=== PATIENT | male | born 1960 | race African-American/Black ===

== ENCOUNTER 2018-03-24 11:54 | Emergency (ER) | payer OTHER ==
[~2018-03-24] VITALS: Ht 177.8 cm; Wt 77.1 kg
--- NOTE | 2018-03-24 12:00 | NUR ---
AAOX3, [facility] FROM [facility] FOR SOB. SPEAKS IN FULL SENTENCES. SKIN IS WARM AND DRY. RR IS EVEN AND UNLABORED WITH NAD NOTED. AWAITING MD FOR EVAL.
[2018-03-24] MEDS ORDERED: IPRATROPIUM NEB FS 0.5 MG/2.5 ML AMPUL.NEB ONE (12:23)
[2018-03-24] MEDS ORDERED: ALBUTEROL FS 2.5 MG/3 ML VIAL.NEB ONE (12:23)
[2018-03-24] MEDS ORDERED: ALBUTEROL FS 2.5 MG/3 ML VIAL.NEB NEB ONE (12:30)
[2018-03-24] MEDS ORDERED: IPRATROPIUM NEB FS 0.5 MG/2.5 ML AMPUL.NEB NEB ONE (12:30)
[2018-03-24] MEDS ORDERED: DEXAMETHASONE SOD PHOSPHATE 10 MG/ML VIAL IM ONE (12:30)
--- NOTE | 2018-03-24 12:40 | NUR ---
Breathing treatment at
[2018-03-24] MEDS ORDERED: DEXAMETHASONE SOD PHOSPHATE 10 MG/ML VIAL ONE (13:05)
--- NOTE | 2018-03-24 13:30 | NUR ---
Patient is resting comfortably in bed with eyes closed. Easily aroused. VSS
--- NOTE | 2018-03-24 14:25 | NUR ---
Patient is resting comfortably in bed with eyes closed. Easily aroused. VSS
[2018-03-24] MEDS ORDERED: AZITHROMYCIN 250 MG TABLET PO ONE (14:30)
[2018-03-24] MEDS ORDERED: AZITHROMYCIN 250 MG TABLET ONE (15:07)
--- NOTE | 2018-03-24 15:16 | NUR ---
Patient discharged to home in stable condition. Written and verbal after care instructions given. Patient verbalizes understanding of instruction.
[2018-03-24 15:18] VITALS: BP 119/81
== END 2018-03-24 15:20 | disposition home or self-care (01) ==
LOC: ER 12:00
DX: J44.9 Chronic obstructive pulmonary disease, unspecified (principal); F17.210 Nicotine dependence, cigarettes, uncomplicated; R53.81 Other malaise; I10 Essential (primary) hypertension; Z93.3 Colostomy status
CPT/HCPCS: 71045; 94640; 96372; 99283; 99406; A4606; J1100; Z7610

== ENCOUNTER 2018-03-26 17:32 | Emergency (ER) | payer OTHER ==
[~2018-03-26] VITALS: Ht 175.3 cm; Wt 68.0 kg
[2018-03-26 17:36] VITALS: BP 149/92
[2018-03-26 18:14] LABS: BASOPHILS % (AUTO) 0.4 % (0.0-2.0); EOSINOPHILS % (AUTO) 2.3 % (0.0-6.0); HEMATOCRIT 32 % (39-51); HEMOGLOBIN 10.5 g/dL (13.5-17.5); LYMPHOCYTES # (AUTO) 1.4 /CMM (0.8-4.8); LYMPHOCYTES % (AUTO) 26.6 % (20.0-44.0); MEAN CORPUSCULAR HGB CONC 33 g/dl (31.0-36.0); MEAN CORPUSCULAR VOLUME 87 fL (80-96); MONOCYTES # (AUTO) 0.3 /CMM (0.1-1.30); MONOCYTES % (AUTO) 6.2 % (2.0-12.0); NEUTROPHILS # (AUTO) 3.6 /CMM (1.8-8.9); NEUTROPHILS % (AUTO) 64.5 % (43.0-81.0); PLATELET COUNT (AUTO) 438 /CMM (150-450); RDW COEFFICIENT OF VARIATION 13.6 (11.5-15.0); RED BLOOD CELL COUNT(AUTO) 3.63 MIL/uL (4.5-6.0); WHITE BLOOD COUNT (AUTO) 5.4 K/uL (4.3-11.0)
[2018-03-26 18:24] LABS: CALCIUM, SERUM 8.5 mg/dL (8.5-10.1); CARBON DIOXIDE 28 mmol/L (21-32); CHLORIDE 99 mmol/L (98-107); CREATININE 1.9 mg/dL (0.6-1.3); GLUCOSE 117 mg/dL (74-106); POTASSIUM 3.7 mmol/L (3.5-5.1); SODIUM SERUM 136 mmol/L (136-145); UREA NITROGEN, BLOOD 55 mg/dL (7-18)
[2018-03-26 18:29] LABS: ACETAMINOPHEN < 2 ug/ml (10-30); ALANINE AMINOTRANSFERASE 20 U/L (12-78); ALBUMIN 3.6 g/dL (3.4-5.0); ALCOHOL, BLOOD < 3 mg/dL (0-0); ALKALINE PHOSPHATASE 78 U/L (46-116); ASPARTATE AMINOTRANSFERASE 26 U/L (15-37); BILIRUBIN,DIRECT 0.1 mg/dL (0.0-0.2); BILIRUBIN,TOTAL 0.3 mg/dL (0.2-1.0); SALICYLATE 0.9 mg/dL (2.8-20.0); TOTAL PROTEIN, SERUM 7.5 g/dL (6.4-8.2)
== END 2018-03-26 19:23 | disposition home or self-care (01) ==
LOC: ER 17:35
DX: Z04.6 Encounter for general psychiatric examination, requested by authority (principal); F29 Unspecified psychosis not due to a substance or known physiological condition; N28.9 Disorder of kidney and ureter, unspecified; I10 Essential (primary) hypertension; F17.200 Nicotine dependence, unspecified, uncomplicated; G40.909 Epilepsy, unspecified, not intractable, without status epilepticus; Z93.3 Colostomy status
CPT/HCPCS: 36415; 71045; 80048; 80076; 80329; 85025; 99285; A4606; G0480 ×2; Z7610

== ENCOUNTER 2018-10-20 06:23 | Emergency (ER) | payer OTHER ==
[~2018-10-20] VITALS: Ht 175.3 cm; Wt 69.9 kg
--- NOTE | 2018-10-20 06:36 | NUR ---
[id number] FR STREETS C/O LEAKING COLOSTOMY BAG, BP 192/108 IN FIELD, OUT OF BP MEDICATION AMLODIPINE & CLONIDINE. PT AOX3 RR EVEN AND UNLABORED. NO SOB NOTED. NAD NOTED. NO NVD AT THIS TIME. PT GOWNED AND PLACED ON MONITOR WAITING FOR MED EVAL. COLOSTOMY BAG NOTED INTACT, NO SIGNS OF LEAKING.
[2018-10-20] MEDS ORDERED: AMLODIPINE BESYLATE 5 MG TABLET ONE (06:55)
[2018-10-20] MEDS ORDERED: CLONIDINE HCL 0.1 MG TABLET ONE (06:55)
[2018-10-20] MEDS: CLONIDINE HCL 0.1 MG TABLET PO ONE ×2 (06:56→06:59)
--- NOTE | 2018-10-20 06:59 | NUR ---
PT REFUSED CLONIDINE 0.1MG PO 1 TAB. RISK AND BENEFITS EXPLAINED X3. PT STRONGLY REFUSED, STATES " I DONT TAKE THAT, I DONT LIKE THE SIDE EFFECTS'
[2018-10-20] MEDS ORDERED: AMLODIPINE BESYLATE 5 MG TABLET PO ONE (07:00)
--- NOTE | 2018-10-20 07:04 | NUR ---
CALLED LAB FOR BLOOD DRAW.
--- NOTE | 2018-10-20 07:06 | NUR ---
REPORT GIVEN TO LAYLA PRADHAN
[2018-10-20 07:34] LABS: BASOPHILS # (AUTO) 0.1 /CMM (0.0-0.2); BASOPHILS % (AUTO) 1.3 % (0.0-2.0); EOSINOPHILS % (AUTO) 2.4 % (0.0-6.0); HEMATOCRIT 32 % (39-51); LYMPHOCYTES # (AUTO) 1.1 /CMM (0.8-4.8); LYMPHOCYTES % (AUTO) 19.6 % (20.0-44.0); MEAN CORPUSCULAR HGB CONC 32 g/dl (31.0-36.0); MEAN CORPUSCULAR VOLUME 92 fL (80-96); MONOCYTES # (AUTO) 0.5 /CMM (0.1-1.30); MONOCYTES % (AUTO) 8.7 % (2.0-12.0); NEUTROPHILS # (AUTO) 3.9 /CMM (1.8-8.9); PLATELET COUNT (AUTO) 275 /CMM (150-450); RED BLOOD CELL COUNT(AUTO) 3.44 MIL/uL (4.5-6.0); WHITE BLOOD COUNT (AUTO) 5.7 K/uL (4.3-11.0)
[2018-10-20 07:51] LABS: CALCIUM, SERUM 8.6 mg/dL (8.5-10.1); CREATININE 1.2 mg/dL (0.6-1.3); POTASSIUM 3.8 mmol/L (3.5-5.1)
[2018-10-20] MEDS ORDERED: IBUPROFEN 600 MG TABLET PO ONE ×2 (08:30→08:34)
--- NOTE | 2018-10-20 08:32 | NUR ---
COLOSTOMY BAG CHANGED. PT TOLERATED WELL.
--- NOTE | 2018-10-20 08:40 | NUR ---
PAGED SW FOR PLACEMENT
--- NOTE | 2018-10-20 09:42 | NUR ---
PT REFUSING TO TALK TO SW
--- NOTE | 2018-10-20 10:05 | NUR ---
PT REFUSING TO SIGN DISCARGE PAPER. PT DISCHARGED WITH SECURITY ASSISTANCE.
--- NOTE | 2018-10-20 10:11 | NUR ---
BETSEY received a call from ED stating pt. would like to speak to SW. BETSEY met with pt. bedside alongside pt's RN. Pt. was asleep. SW and RN attempted to wake pt. up but he refused to wake up and speak to SW. SW tried several times but pt. did not cooperate.
[2018-10-20 11:10] VITALS: BP 184/94
== END 2018-10-20 11:12 | disposition home or self-care (01) ==
LOC: ER 06:24
DX: T83.030A Leakage of cystostomy catheter, initial encounter (principal); I10 Essential (primary) hypertension; Z91.14 Patient's other noncompliance with medication regimen; Z93.3 Colostomy status; M10.9 Gout, unspecified; F17.200 Nicotine dependence, unspecified, uncomplicated; M19.90 Unspecified osteoarthritis, unspecified site; Z98.890 Other specified postprocedural states; Z59.0 Homelessness
CPT/HCPCS: 36415; 80048-TC; 84484-TC; 85025-TC; A4362; A4606; Z7610

== ENCOUNTER 2019-10-01 02:10 | Emergency (ER) | payer MEDICAID, OTHER ==
[~2019-10-01] VITALS: Ht 175.3 cm; Wt 61.2 kg
--- NOTE | 2019-10-01 02:19 | NUR ---
PT BIB RA WITH A C/O BILATERAL FOOT PAIN DUE TO GOUT/ARTHITIS. PT IS CONCERNED ABOUT HIS COLOSTOMY. PT WAS PLACED ON THE MONITOR AND CONTINUOUS PULSE OX. PT WAS SEEN BY .
[2019-10-01] MEDS ORDERED: IBUPROFEN 600 MG TABLET PO ONE ×2 (02:30→02:38)
--- NOTE | 2019-10-01 02:50 | NUR ---
PT REC'D A SPARE COLOSTOMY BAG.
[2019-10-01 02:54] VITALS: BP 144/104
--- NOTE | 2019-10-01 02:58 | NUR ---
Patient discharged to home in stable condition. Written and verbal after care instructions given. Patient verbalizes understanding of instruction. PT IS HOMELESS AND SIGNED HOMELESS WAIVER. PT REC'D A HOMELESS RESOURCE PACKAGE AND A TAP CARD. PT IS NOT VERBALIZE WHAT SKILLED NURSING HE WOULD GO TO. PT REC'D A MEAL (SANDWICH, JUICE, JELLO, PUDDING, YOGURT, APPLE SAUCE, AND CRACKERS). [facility] WITH [facility], TO WAIT FOR THE TAP CARD. PT HAD APPROPRIATE CLOTHING UPON DISCHARGE. VSS.
== END 2019-10-01 02:58 | disposition home or self-care (01) ==
LOC: ER 02:11
DX: K94.03 Colostomy malfunction (principal); N15.9 Renal tubulo-interstitial disease, unspecified; F10.10 Alcohol abuse, uncomplicated; F17.200 Nicotine dependence, unspecified, uncomplicated; Y90.9 Presence of alcohol in blood, level not specified; Z59.0 Homelessness

== ENCOUNTER 2022-05-25 14:22 | Emergency (ER) | payer OTHER ==
[~2022-05-25] VITALS: Ht 175.3 cm; Wt 59.0 kg
[2022-05-25 15:49] LABS: BASOPHILS # (AUTO) 0.1 K/uL (0.0-0.2); BASOPHILS % (AUTO) 0.8 % (0.0-2.0); EOSINOPHILS % (AUTO) 0.4 % (0.0-6.0); HEMATOCRIT 26 % (39-51); HEMOGLOBIN 8.8 g/dL (13.5-17.5); LYMPHOCYTES # (AUTO) 0.8 K/uL (0.8-4.8); LYMPHOCYTES % (AUTO) 9.2 % (20.0-44.0); MEAN CORPUSCULAR HGB CONC 34 g/dl (31.0-36.0); MEAN CORPUSCULAR VOLUME 95 fL (80-96); MONOCYTES # (AUTO) 0.4 K/uL (0.1-1.30); MONOCYTES % (AUTO) 4.7 % (2.0-12.0); NEUTROPHILS # (AUTO) 7.7 K/uL (1.8-8.9); NEUTROPHILS % (AUTO) 84.9 % (43.0-81.0); PLATELET COUNT (AUTO) 742 K/uL (150-450); RED BLOOD CELL COUNT(AUTO) 2.71 MIL/uL (4.5-6.0)
[2022-05-25 15:49] LABS: BILIRUBIN,URINE NEGATIVE (NEGATIVE); COLOR,URINE YELLOW (YELLOW); LEUKOCYTE ESTERASE ,URINE NEGATIVE (NEGATIVE); NITRITE, URINE NEGATIVE (NEGATIVE); PROTEIN,URINE NEGATIVE (NEGATIVE); UGLUCOSE NEGATIVE (NEGATIVE); UROBILINOGEN,URINE 0.2 EU/dL (0.2)
[2022-05-25 16:00] LABS: CALCIUM, SERUM 9.1 mg/dL (8.5-10.1); CARBON DIOXIDE 30 mmol/L (21-32); CHLORIDE 100 mmol/L (98-107); CREATININE 1.7 mg/dL (0.6-1.3); GLUCOSE 197 mg/dL (74-106); POTASSIUM 3.9 mmol/L (3.5-5.1); SODIUM SERUM 138 mmol/L (136-145); UREA NITROGEN, BLOOD 21 mg/dL (7-18)
[2022-05-25 16:14] LABS: ALANINE AMINOTRANSFERASE 25 U/L (12-78); ALBUMIN 3.5 g/dL (3.4-5.0); ALKALINE PHOSPHATASE 82 U/L (46-116); ASPARTATE AMINOTRANSFERASE 20 U/L (15-37); BILIRUBIN,DIRECT 0.2 mg/dL (0.0-0.2); BILIRUBIN,TOTAL 0.6 mg/dL (0.2-1.0)
[2022-05-25 16:15] LABS: ACETAMINOPHEN < 0 ug/ml (10-30); ALCOHOL, BLOOD < 3 mg/dL (0-0)
--- NOTE | 2022-05-25 16:45 | NUR ---
FAXED FACESHEET AND CLINICALS TO [facility]
--- NOTE | 2022-05-25 17:31 | NUR ---
PT UNDER DR MORIN NUMBER FOR REPORT [phone]
--- NOTE | 2022-05-25 18:33 | NUR ---
REPORT GIVEN TO NURSE ARNOLD FROM [facility]
--- NOTE | 2022-05-25 20:22 | NUR ---
[facility] BLS TO [facility] ETA [id number]
[2022-05-25 22:24] VITALS: BP 137/87
--- NOTE | 2022-05-25 22:24 | NUR ---
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
== END 2022-05-25 22:25 ==
LOC: ER 14:33
DX: R45.851 Suicidal ideations (principal); F19.10 Other psychoactive substance abuse, uncomplicated; D64.9 Anemia, unspecified; F25.9 Schizoaffective disorder, unspecified; F32.A Depression, unspecified; Z59.00 Homelessness unspecified; N28.9 Disorder of kidney and ureter, unspecified; Z20.822 Contact with and (suspected) exposure to COVID-19
CPT/HCPCS: 36415; 80048; 80076; 80143; 80307; 80320; 81003; 85025; 87426; 99285; C9803; G0480

== ENCOUNTER 2022-10-21 08:43 | Emergency (ER) | payer OTHER ==
[~2022-10-21] VITALS: Ht 175.3 cm; Wt 68.0 kg
[2022-10-21] MEDS ORDERED: LORAZEPAM INJ 2 MG/ML VIAL IM ONE (09:00)
[2022-10-21] MEDS ORDERED: HALOPERIDOL LACTATE INJ 5 MG/ML VIAL IM ONE (09:00)
--- NOTE | 2022-10-21 09:07 | NUR ---
C/O FLU LIKE SYMPTOMS FOR X3DAYS, NO FEVER 99.0'F HYPERTENSION 203/105 NON COMPLIANT WITH HYPERTENSION MEDICATION .
[2022-10-21] MEDS ORDERED: LORAZEPAM INJ 2 MG/ML VIAL ONE (09:09)
[2022-10-21] MEDS ORDERED: HALOPERIDOL LACTATE INJ 5 MG/ML VIAL ONE (09:09)
--- NOTE | 2022-10-21 09:09 | NUR ---
HOOKED TO MONITOR
--- NOTE | 2022-10-21 09:09 | NUR ---
AT BEDSIDE FOR EVAL
[2022-10-21 09:50] LABS: HEMOGLOBIN 11.7 g/dL (13.5-17.5)
[2022-10-21 10:03] LABS: BASOPHILS % (AUTO) 0.4 % (0.0-2.0); EOSINOPHILS % (AUTO) 0.4 % (0.0-6.0); HEMATOCRIT 36 % (39-51); LYMPHOCYTES # (AUTO) 1.4 K/uL (0.8-4.8); LYMPHOCYTES % (AUTO) 14.6 % (20.0-44.0); MEAN CORPUSCULAR HGB CONC 33 g/dl (31.0-36.0); MEAN CORPUSCULAR VOLUME 91 fL (80-96); MONOCYTES # (AUTO) 1.5 K/uL (0.1-1.30); MONOCYTES % (AUTO) 16.1 % (2.0-12.0); NEUTROPHILS # (AUTO) 6.5 K/uL (1.8-8.9); NEUTROPHILS % (AUTO) 68.5 % (43.0-81.0); PLATELET COUNT (AUTO) 351 K/uL (150-450); RED BLOOD CELL COUNT(AUTO) 3.95 MIL/uL (4.5-6.0); WHITE BLOOD COUNT (AUTO) 9.4 K/uL (4.3-11.0)
[2022-10-21 10:08] LABS: ALANINE AMINOTRANSFERASE 26 U/L (12-78); ALBUMIN 3.7 g/dL (3.4-5.0); ALCOHOL, BLOOD < 3 mg/dL (0-0); ALKALINE PHOSPHATASE 117 U/L (46-116); ASPARTATE AMINOTRANSFERASE 31 U/L (15-37); BILIRUBIN,DIRECT 0.1 mg/dL (0.0-0.2); BILIRUBIN,TOTAL 0.6 mg/dL (0.2-1.0); CARBON DIOXIDE 29 mmol/L (21-32); CHLORIDE 100 mmol/L (98-107); CREATININE 1.6 mg/dL (0.6-1.3); GLUCOSE 110 mg/dL (74-106); POTASSIUM 4.4 mmol/L (3.5-5.1); SODIUM SERUM 136 mmol/L (136-145); TOTAL PROTEIN, SERUM 8.7 g/dL (6.4-8.2); UREA NITROGEN, BLOOD 21 mg/dL (7-18)
[2022-10-21 10:10] LABS: ACETAMINOPHEN 0 ug/ml (10-30)
[2022-10-21 10:19] LABS: LYMPHOCYTES % (MANUAL) 20 % (16-48); MONOCYTES % (MANUAL) 16 % (0-11.0); NEUTROPHILS % (MANUAL) 64 (42-76)
[2022-10-21] MEDS ORDERED: ACETAMINOPHEN 650 MG/SUPP.RECT RC ONE ×2 (14:44→15:30)
--- NOTE | 2022-10-21 15:00 | NUR ---
URINE COLLECTED AND SENT
[2022-10-21 15:55] LABS: BILIRUBIN,URINE NEGATIVE (NEGATIVE); COLOR,URINE YELLOW (YELLOW); LEUKOCYTE ESTERASE ,URINE NEGATIVE (NEGATIVE); NITRITE, URINE POSITIVE (NEGATIVE); PH,URINE 6.5 (5.0-8.0); PROTEIN,URINE TRACE mg/dl (NEGATIVE); UGLUCOSE NEGATIVE (NEGATIVE); UROBILINOGEN,URINE 0.2 EU/dL (0.2)
[2022-10-21 16:47] LABS: BACTERIA,URINE rare /HPF (None Seen); RBC,URINE 0-2 /HPF (0-2); SQUAMOUS EPITHELIAL CELL,UR 0-2 /HPF (None Seen); WBC,URINE 0-2 /HPF (0-3)
[2022-10-22] MEDS ORDERED: IV NS 0.9% 1,000 ML IV ONE (01:30)
[2022-10-22] MEDS ORDERED: ONDANSETRON HCL/PF - ER 4 MG/2 ML VIAL IV ONE (01:30)
[2022-10-22] MEDS ORDERED: ACETAMINOPHEN 325 MG TABLET PO ONE (01:30)
[2022-10-22] MEDS ORDERED: ONDANSETRON HCL/PF 4 MG/2 ML VIAL ONE (01:45)
[2022-10-22] MEDS ORDERED: ACETAMINOPHEN ES 500 MG TABLET ONE (02:08)
[2022-10-22 02:21] LABS: CREATININE 1.5 mg/dL (0.6-1.3); POTASSIUM 3.7 mmol/L (3.5-5.1)
[2022-10-22 02:24] LABS: BASOPHILS % (AUTO) 0.1 % (0.0-2.0); HEMATOCRIT 35 % (39-51); HEMOGLOBIN 11.4 g/dL (13.5-17.5); LYMPHOCYTES # (AUTO) 0.6 K/uL (0.8-4.8); LYMPHOCYTES % (AUTO) 5.8 % (20.0-44.0); MEAN CORPUSCULAR HGB CONC 32 g/dl (31.0-36.0); MEAN CORPUSCULAR VOLUME 91 fL (80-96); MONOCYTES # (AUTO) 0.4 K/uL (0.1-1.30); MONOCYTES % (AUTO) 4.3 % (2.0-12.0); NEUTROPHILS # (AUTO) 8.8 K/uL (1.8-8.9); NEUTROPHILS % (AUTO) 89.8 % (43.0-81.0); PLATELET COUNT (AUTO) 381 K/uL (150-450); WHITE BLOOD COUNT (AUTO) 9.8 K/uL (4.3-11.0)
[2022-10-22] MEDS ORDERED: AMLODIPINE BESYLATE 5 MG TABLET ONE (02:42)
[2022-10-22] MEDS ORDERED: HYDROCHLOROTHIAZIDE 25 MG TABLET ONE (02:43)
[2022-10-22] MEDS ORDERED: HYDROCHLOROTHIAZIDE 25 MG TABLET PO ONE (03:00)
[2022-10-22] MEDS ORDERED: AMLODIPINE BESYLATE 5 MG TABLET PO ONE (03:00)
--- NOTE | 2022-10-22 03:30 | NUR ---
PATIENT TRANSFERRED FROM BED 13 TO BED 6 D/T + MARY LOU
[2022-10-22] MEDS ORDERED: HYDR25TA4 PO (04:54)
[2022-10-22] MEDS ORDERED: AMLO-213 PO (04:54)
[2022-10-22] MEDS ORDERED: TYL2T PO (04:54)
--- NOTE | 2022-10-22 05:16 | NUR ---
Patient discharged to home in stable condition. Rx and Written and verbal after care instructions given. Patient verbalizes understanding of instruction.
[2022-10-22 05:39] VITALS: BP 185/99
== END 2022-10-22 05:19 | disposition home or self-care (01) ==
LOC: ER 08:46
DX: U07.1 COVID-19 (principal); I12.9 Hypertensive chronic kidney disease with stage 1 through stage 4 chronic kidney disease, or unspecified chronic kidney disease; N18.9 Chronic kidney disease, unspecified; D53.9 Nutritional anemia, unspecified; R07.9 Chest pain, unspecified; R45.1 Restlessness and agitation; F19.10 Other psychoactive substance abuse, uncomplicated; Z59.00 Homelessness unspecified; F17.200 Nicotine dependence, unspecified, uncomplicated; Z91.14 Patient's other noncompliance with medication regimen
CPT/HCPCS: 99285; 96372 ×2; 70450; 85025 ×2; 80048 ×2; 87086; 80076; 85007; 81001; 36415 ×2; 80143; 80320; 80307; 96374; 96361; 93005; 87804; 71045; 83605; 84484 ×2; 87426; J2060; J1630; J2405 ×2; J7030 ×2; C9803; G0480

== ENCOUNTER 2024-12-22 08:46 | Emergency (ER) | payer OTHER ==
[~2024-12-22] VITALS: Ht 175.3 cm; Wt 72.6 kg
[~2024-12-22 08:46] MED LIST: AMLO-213 PO; HYDR25TA4 PO; IBUP-1953 PO; TYL2T PO
[2024-12-22] MEDS ORDERED: AMLO-213 PO (09:12)
[2024-12-22 09:21] VITALS: BP 148/85; TEMP 98.3; O2SAT 97
== END 2024-12-22 09:21 | disposition home or self-care (01) ==
LOC: ER 08:48
DX: I10 Essential (primary) hypertension (principal); F17.200 Nicotine dependence, unspecified, uncomplicated; M10.9 Gout, unspecified; M19.90 Unspecified osteoarthritis, unspecified site; Z76.0 Encounter for issue of repeat prescription; Z59.00 Homelessness unspecified; Z79.899 Other long term (current) drug therapy